=== PATIENT | female | born 1990 | race Caucasian/White ===

== ENCOUNTER 2018-01-11 12:59 | Outpatient (CLI) | payer OTHER ==
[2018-01-11] MEDS ORDERED: IOHEXOL 50 ML IV ONE (13:20)
== END 2018-01-11 19:36 | disposition home or self-care (01) ==
LOC: SRD 12:59
PROVIDERS: ATTEND Specialist
DX: N97.1 Female infertility of tubal origin (principal)
CPT/HCPCS: 74740; C1751; Q9967